=== PATIENT | female | born 1985 | race Caucasian/White ===

== ENCOUNTER 2023-04-20 16:18 | Outpatient (CLI) | payer OTHER, SELFPAY ==
--- NOTE | ~2023-04-20 | XR_ITS ---
EXAMINATION: XR chest 2V DATE: 04/20/2023 16:39 INDICATION: Acute cough. TECHNIQUE: Frontal and lateral views of the chest were obtained. COMPARISON: None. FINDINGS: There is no pneumonia, pleural effusion, or pneumothorax. The heart size is normal. IMPRESSION: 1. No acute cardiopulmonary disease. Reviewed, dictated and finalized at location A. T [employer] REPRESENTATIVE
== END 2023-04-20 16:19 | disposition home or self-care (01) ==
LOC: ANHIMG 16:24
PROVIDERS: PCP Family Medicine; Visit Provider Family Medicine
DX: R05.1 Acute cough (principal); R07.89 Other chest pain
CPT/HCPCS: 71046

== ENCOUNTER 2025-02-13 14:28 | Outpatient (CLI) | payer OTHER, SELFPAY ==
--- NOTE | ~2025-02-13 | CT_ITS ---
EXAMINATION: CT sinus wo con COMPARISON: None HISTORY: J32.9 - Chronic sinusitis, unspecified TECHNIQUE: Axial images were obtained without IV contrast. Sagittal, coronal reconstruction images were obtained from the axial views. CT scan performed using dose optimization techniques including the following automated exposure control; adjustment of mA and/or kV; use of iterative reconstruction technique. Automatic exposure control was used to reduce radiation dose. Permanent radiation dose record is archived to PACS. FINDINGS: The nasal bones are intact. Anterior maxillary sinus gimenez and zygomatic arches intact. Temporomandibular joints, orbital floors and medial orbits are intact. Frontal sinus is unremarkable. Minimal mucosal thickening in the ethmoidal air cells and left maxillary sinus. Ostiomeatal complexes are patent. Nasal septum is midline. No significant deviation of the nasal septum wall thickening of the turbinates no narrowing of the nasal cavities. Minimal mucosal thickening in the sphenoid sinuses. No osseous destruction or wall thickening identified. IMPRESSION: Minimal sinusitis Reviewed, dictated and finalized at location P. IMPRESSION: Minimal sinusitis
== END 2025-02-13 14:29 | disposition home or self-care (01) ==
PROVIDERS: PCP Family Medicine; Visit Provider Otolaryngology
DX: J32.9 Chronic sinusitis, unspecified (principal)
CPT/HCPCS: 70486